=== PATIENT | female | born 1970 | race African-American/Black ===

== ENCOUNTER 2020-12-16 19:41 | Emergency (ER) | payer OTHER ==
[~2020-12-16] VITALS: Ht 162.6 cm; Wt 100.7 kg
[~2020-12-16 19:41] MED LIST: XANAX 0.5 MG0.5 MG PO
[2020-12-16] MEDS ORDERED: VENTOLIN HFA 1818 GM INH (21:34)
[2020-12-16 21:48] VITALS: BP 130/79
== END 2020-12-16 21:49 | disposition home or self-care (01) ==
LOC: ER 19:41
DX: U07.1 COVID-19 (principal); R06.02 Shortness of breath; R05 Cough; I10 Essential (primary) hypertension; Z90.710 Acquired absence of both cervix and uterus; Z98.890 Other specified postprocedural states; Z79.899 Other long term (current) drug therapy